=== PATIENT | male | born 1965 | race Caucasian/White ===

== ENCOUNTER 2022-12-07 04:05 | Inpatient (IN) | payer OTHER ==
[2022-12-01 12:57] VITALS: BMI 38.4
[~2022-12-07 04:05] MED LIST: BUPIVACAINE HCL/PF 0.5% (5MG/ML) 10 ML VIAL IJ ONE; THROMBIN (BOVINE) 5,000 UNIT VIAL TP ONE
[2022-12-07] MEDS ORDERED: BACITRACIN ZINC 15 GM TUBE TOPICAL OINTMENT ONE (12:19)
[2022-12-07] MEDS ORDERED: THROMBIN (BOVINE) 5,000 UNIT VIAL TP ONE ×2 (12:20→14:29)
[2022-12-07] MEDS ORDERED: BUPIVACAINE HCL/PF 0.5% (5MG/ML) 10 ML VIAL ONE (12:20)
[2022-12-07] MEDS ORDERED: ROCURONIUM BROMIDE 50 MG/5 ML SYRINGE ONE ×2 (13:09→14:46)
[2022-12-07] MEDS ORDERED: MIDAZOLAM HCL 2 MG/2 ML SINGLE DOSE VIAL ONE (13:09)
[2022-12-07] MEDS ORDERED: PROPOFOL 20 ML ONE (13:09)
[2022-12-07] MEDS ORDERED: ACETAMINOPHEN INJECTION 100 ML IVPB ONE (13:20)
[2022-12-07] MEDS ORDERED: SEVOFLURANE 250 ML BTL ONE (13:20)
[2022-12-07] MEDS ORDERED: VANCOMYCIN 1,000 MG VIAL (RESTRICTED TO ID ONLY) ONE (13:31)
[2022-12-07] MEDS ORDERED: ceFAZolin SODIUM 1 GM VIAL IVPB ONE ×2 (14:05→18:00)
[2022-12-07] MEDS ORDERED: VANCOMYCIN 1 GM in NS (PRE-DOCKED) 1,000 MG/250 ML IVPB ONE (14:35)
[2022-12-07] MEDS ORDERED: BUPIVACAINE HCL/PF 0.5% (5MG/ML) 10 ML VIAL IJ ONE (14:57)
[2022-12-07] MEDS ORDERED: methylPREDNISolone ACET (DEPO) 80 MG/1 ML VIAL ONE (15:20)
[2022-12-07] MEDS ORDERED: methylPREDNISolone ACET (DEPO) 80 MG/1 ML VIAL IJ ONE (15:22)
[2022-12-07] MEDS ORDERED: BUPIVACAINE HCL/PF 0.25% (2.5MG/ML) 10 ML VIAL ONE (15:23)
[2022-12-07] MEDS ORDERED: ONDANSETRON 4 MG/2 ML VIAL IVPUSH PRN (15:51)
[2022-12-07] MEDS ORDERED: oxyCODONE HCL 5 MG TABLET PO PRN (15:51)
[2022-12-07] MEDS ORDERED: SUCCINYLCHOLINE CHLORIDE 200 MG/10 ML SYRINGE ONE (16:38)
[2022-12-07] MEDS ORDERED: PROPOFOL 40 ML ONE (16:38)
[2022-12-07] MEDS ORDERED: ceFAZolin SODIUM 1 GM VIAL ONE (17:36)
[2022-12-07] MEDS: diazePAM 5 MG TABLET PO SCH ×2 (18:43→23:58)
[2022-12-07] MEDS: D5-1/2NS+20 MEQ KCL - 20 MEQ/1,000 ML INFUS.BAG IV SCH (18:49)
[2022-12-07] MEDS: CEFAZOLIN 1 GM in DEXTROSE 5%-WATER - 50 ML IVPB SCH (18:49)
[2022-12-07] MEDS: GABAPENTIN 300 MG CAPSULE PO SCH (21:15)
[2022-12-07] MEDS: DOCUSATE SODIUM 100 MG CAPSULE (FP) PO SCH (21:15)
[2022-12-08] MEDS: CEFAZOLIN 1 GM in DEXTROSE 5%-WATER - 50 ML IVPB SCH (01:46)
[2022-12-08] MEDS: GABAPENTIN 300 MG CAPSULE PO SCH ×6 (01:47→21:48)
[2022-12-08] MEDS: D5-1/2NS+20 MEQ KCL - 20 MEQ/1,000 ML INFUS.BAG IV SCH ×2 (04:02→17:53)
[2022-12-08] MEDS: DOCUSATE SODIUM 100 MG CAPSULE (FP) PO SCH ×3 (05:20→21:48)
[2022-12-08] MEDS: diazePAM 5 MG TABLET PO SCH ×2 (11:00→17:55)
[2022-12-08] MEDS: ALLOPURINOL 300 MG TABLET (FP) PO SCH (11:01)
[2022-12-08 19:11] VITALS: RESP 20
[2022-12-08 21:31] VITALS: BP 132/76; PULSE 85; TEMP 98.9
[2022-12-09] MEDS: diazePAM 5 MG TABLET PO SCH ×2 (00:11→09:05)
[2022-12-09] MEDS: GABAPENTIN 300 MG CAPSULE PO SCH ×3 (02:17→09:05)
[2022-12-09] MEDS: DOCUSATE SODIUM 100 MG CAPSULE (FP) PO SCH (06:19)
[2022-12-09] MEDS: ALLOPURINOL 300 MG TABLET (FP) PO SCH (09:05)
== END 2022-12-09 12:16 | disposition home or self-care (01) | DRG 304 ==
LOC: J2C 04:05 → J8W 19:22
PROVIDERS: ADMIT Neurological Surgery; ATTEND Neurological Surgery
PROC: 0SB20ZZ Excision of Lumbar Vertebral Disc, Open Approach (ICD-10-PCS; 2022-12-07)
PROC: 01NB0ZZ Release Lumbar Nerve, Open Approach (ICD-10-PCS; 2022-12-07)
PROC: 0SG00J1 Fusion of Lumbar Vertebral Joint with Synthetic Substitute, Posterior Approach, Posterior Column, Open Approach (ICD-10-PCS; principal; 2022-12-07 12:00)
DX: M51.16 Intervertebral disc disorders with radiculopathy, lumbar region (principal); M41.9 Scoliosis, unspecified; M43.16 Spondylolisthesis, lumbar region; E66.9 Obesity, unspecified; Z68.38 Body mass index [BMI] 38.0-38.9, adult
CPT/HCPCS: 76000-TC-FY; 86850; 86900; 86901; 88304-TC; 94760; 97116-GP; 97161-GP